=== PATIENT | female | born 1965 | race Caucasian/White ===

== ENCOUNTER 2017-11-20 17:59 | Emergency (ER) ==
[2017-11-20] MEDS ORDERED: ADENOCARD IVP STA (18:05)
[2017-11-20 18:12] VITALS: TEMP 98.1; BMI 23.8
[2017-11-20] MEDS ORDERED: ADENOCARD IVP ONE (18:20)
--- NOTE | 2017-11-20 18:47 | ED.PDOC ---
General ED Provider: Dr. NOEMI LARIOS Chief Complaint: Arrhythmia Stated Complaint: PALIPATION Time Seen by Physician: 18:00 (ARRIVED IN SVT RATE 198 ) Mode of Arrival: Walk-In Information Source: Patient Exam Limitations: No limitations Primary Care Provider: EVELIO VALADEZ Nursing and Triage Documentation Reviewed and Agree: Yes Reviewed sepsis parameters & appropriate labs ordered?: Yes System Inflammatory Response Syndrome: Not Applicable Sepsis Protocol: For patient's 13 years and over: Temp is 96.8 and below OR 101 and greater Pulse >90 BPM Resp >20/minute Acutely Altered Mental Status Are patient's symptoms suggestive of a new infection, such as: -Pneumonia -Skin, Soft Tissue -Endocarditis -UTI -Bone, Joint Infection -Implantable Device -Acute Abdominal Infection -Wound Infection -Meningitis -Blood Stream Catheter Infection -Unknown System Inflammatory Response Syndrome: Not Applicable Cardiovascular Complaint Exam - Palpitations Complaint/Exam Onset/Duration: 1 HR [employer] Symptoms Are: Still present (RESOLVED POST ADENOCAR 6 MG IVP AFTER ARRIVAL) Timing: Intermittent Initial Severity: Severe Current Severity: Severe Character: Reports: Fast, Pounding Aggravating: Reports: None Alleviating: Reports: None Associated Signs and Symptoms: Reports: Lightheadedness. Denies: Dizziness, Syncope, Chest pain, Shortness of breath, Diaphoresis, Nausea, Vomiting Related History: Similar episode Related Surgical History: Reports: None Review of Systems - Review Of Systems Constitutional: Reports: No symptoms Eyes: Reports: No symptoms Ears, Nose, Mouth, Throat: Reports: No symptoms Respiratory: Reports: No symptoms Cardiac: Reports: Palpitations GI: Reports: No symptoms : Reports: No symptoms Musculoskeletal: Reports: No symptoms Skin: Reports: No symptoms Neurological: Reports: No symptoms Endocrine: Reports: No symptoms Hematologic/Lymphatic: Reports: No symptoms All Other Systems: Reviewed and Negative Past Medical History - Past Medical History Previously Healthy: Yes Endocrine: Reports: None Cardiovascular: Reports: None Respiratory: Reports: None Hematological: Reports: None Gastrointestinal: Reports: None Genitourinary: Reports: None Neuro/Psych: Reports: None Musculoskeletal: Reports: None Cancer: Reports: None Last Menstrual Period: hysterectomy - Surgical History General Surgical History: Reports: Hysterectomy - Family History Family History: Reports: None - Social History Smoking Status: Never smoker Hx Substance Use: No Alcohol Screening: None Physical Exam - Physical Exam Appearance: Ill-appearing Ill-appearing: Mild Pain Distress: Mild Eyes: LE, EOMI, Conjunctiva clear ENT: Ears normal, Nose normal, Oropharynx normal Respiratory: Airway patent, Breath sounds clear, Breath sounds equal, Respirations nonlabored Cardiovascular: Tachycardia GI/: Soft, Nontender, No masses, Bowel sounds normal, No Organomegaly Musculoskeletal: Normal strength, ROM intact, No edema, No calf tenderness Skin: Warm, Dry, Normal color Neurological: Sensation intact, Motor intact, Reflexes intact, Cranial nerves intact, Alert, Oriented Psychiatric: Affect appropriate, Mood appropriate Interpretation - EKG Interpretation Rhythm: Other (SVT CONVERTED SINUS TACH) Physician Notification - Case Discussed Physician Notified: Chris MILLAN Time of Notification: 19:33 Critical Care Note - Critical Care Note Total Time (mins): 0 Course - Course Hematology/Chemistry: 11/20/17 18:05 11/20/17 18:05 Orders, Labs, Meds: Lab Review 11/20/17 11/20/17 18:05 18:05 WBC 11.82 H RBC 4.77 Hgb 14.5 Hct 41.8 MCV 87.6 MCH 30.4 MCHC 34.7 RDW Coeff of Emigdio 12.8 Plt Count 354 Immature Gran % (Auto) 0.4 Neut % (Auto) 70.3 Lymph % (Auto) 21.1 Izard % (Auto) 8.0 Eos % (Auto) 0.0 Baso % (Auto) 0.2 Immature Gran # (Auto) 0.1 Neut # 8.3 H Lymph # 2.5 Izard # 0.9 Eos # 0.0 Baso # 0.0 Sodium 145 Potassium 4.3 Chloride 111 H Carbon Dioxide 26 Anion Gap 12.3 BUN 9 Creatinine 0.79 Estimated GFR (MDRD) 77.00 BUN/Creatinine Ratio 11.39 Glucose 106 Calcium 9.5 Total Bilirubin 0.6 AST 18 ALT 26 Alkaline Phosphatase 73 Total Creatine Kinase 100 Troponin I 0.0150 Total Protein 7.7 Albumin 3.8 Globulin 3.9 Albumin/Globulin Ratio 0.97 TSH 0.733 Free T4 1.01 Orders Category Date Time Status EKG-(ED ONLY) Stat CARDIO 11/20/17 18:04 Completed EKG-(ED ONLY) Stat CARDIO 11/20/17 18:11 Completed ED IV/MEDIPORT/POWERPORT .ONCE EMERGENCY 11/20/17 18:04 Active CBC W/ AUTO DIFF Stat LAB 11/20/17 18:05 Completed COMPREHENSIVE METABOLIC PANEL Stat LAB 11/20/17 18:05 Completed CREATINE KINASE Stat LAB 11/20/17 18:05 Completed FREE T4 (FREE THYROXINE) Stat LAB 11/20/17 18:05 Completed THYROID STIMULATING HORMONE Stat LAB 11/20/17 18:05 Completed TROPONIN I Stat LAB 11/20/17 18:05 Completed 0.9 % Sodium Chloride [Saline Flush] MEDS 11/20/17 18:03 Ordered 1 syr IVF PRN PRN Adenosine [Adenocard] MEDS 11/20/17 18:20 Discontinued 24 mg IVP .STK-MED ONE Adenosine [Adenocard] MEDS 11/20/17 18:05 Discontinued 6 mg IVP ONCE STA CHEST, 1V AP ONLY Stat RADS 11/20/17 18:04 Taken Medications Generic Name Dose Route Start Last Admin Trade Name Freq PRN Reason Stop Dose Admin Sodium Chloride 1 syr 11/20/17 18:03 11/20/17 18:16 Saline Flush IVF 1 syr PRN PRN Administration To flush IV Discontinued Medications Generic Name Dose Route Start Last Admin Trade Name Freq PRN Reason Stop Dose Admin Adenosine 6 mg 11/20/17 18:05 11/20/17 18:10 Adenocard IVP 11/20/17 18:06 6 mg ONCE STA Administration Vital Signs: Temp Pulse Resp BP Pulse Ox 11/20/17 18:56 107 H 163/105 H 100 11/20/17 18:18 112 H 160/113 H 100 11/20/17 18:01 98.1 F 190 H 20 112/99 H 100 GABBY Risk Score GABBY Risk Score: Risk Score Odds of by 30D 0 0.1 (0.1-0.2) 1 0.3 (0.2-0.3) 2 0.4 (0.3-0.5) 3 0.7 (0.6-0.9) 4 1.2 (1.0-1.5) 5 2.2 (1.9-2.6) 6 3.0 (2.5-3.6) 7 4.8 (3.8-6.1) Departure - Departure Time of Disposition: 19:00 Disposition: TSF SHORT-TRM HOSP Discharge Problem: Dysthymia Instructions: Supraventricular Tachycardia (ED) Condition: Good Pt referred to PMD for follow-up: Yes IPMP verified?: No Additional Instructions: Please call your Family Physician as soon as possible to schedule a follow-up appointment. Allergies/Adverse Reactions: Allergies iv contrast dye Adverse Reaction (Uncoded 11/20/17 18:21) Transfer Form Completed: Yes Disposition Discussed With: Patient, Family
[2017-11-20 18:57] VITALS: BP 163/105
--- NOTE | 2017-11-21 07:39 | DI ---
EXAM: Chest one view, frontal view only. HISTORY: Chest pain. COMPARISON: 09/18/2016. FINDINGS: The heart size is normal. There is no pulmonary vascular congestion. The lungs are clear . No pleural effusion or pneumothorax is seen. No acute osseous abnormality is identified. Since t he prior study, there has been no significant interval change. IMPRESSION: No acute cardiopulmonary process.
== END 2017-11-20 20:40 | disposition short-term general hospital (02) ==
LOC: ED 17:59
DX: I47.1 Supraventricular tachycardia (principal)
CPT/HCPCS: 36415; 80053; 82550; 84439; 84443; 84484; 85025; 93005; 93010; 96361; 96374; 99285

== ENCOUNTER 2017-12-30 18:50 | Emergency (ER) ==
[2017-12-30 18:54] VITALS: BMI 24.5
[2017-12-30] MEDS ORDERED: ASPIRIN CHEWABLE PO STA (19:19)
[2017-12-30] MEDS ORDERED: NITROSTAT SL STA (19:20)
[2017-12-30] MEDS ORDERED: SODIUM CHLORIDE 1,000 ML IV STA (19:21)
[2017-12-30] MEDS ORDERED: ZOFRAN 4 MG/2 ML IVP STA (19:21)
[2017-12-30] MEDS ORDERED: TORADOL IVP STA (20:00)
--- NOTE | 2017-12-30 20:04 | ED.PDOC ---
General ED Provider: Dr. DOMINICK SANTACRUZ Chief Complaint: Chest Pain Stated Complaint: Patient is a 52 year old female who states she had SVT ablation at [facility] in [place]. Has been having chest pain off and on worse [facility] Describes the pain as pressure located on the left. Time Seen by Physician: 19:05 Mode of Arrival: Walk-In Information Source: Patient, EMT Primary Care Provider: EVELIO VALADEZ Nursing and Triage Documentation Reviewed and Agree: Yes Reviewed sepsis parameters & appropriate labs ordered?: No System Inflammatory Response Syndrome: Not Applicable Sepsis Protocol: For patient's 13 years and over: Temp is 96.8 and below OR 101 and greater Pulse >90 BPM Resp >20/minute Acutely Altered Mental Status Are patient's symptoms suggestive of a new infection, such as: -Pneumonia -Skin, Soft Tissue -Endocarditis -UTI -Bone, Joint Infection -Implantable Device -Acute Abdominal Infection -Wound Infection -Meningitis -Blood Stream Catheter Infection -Unknown System Inflammatory Response Syndrome: Not Applicable Review of Systems - Review Of Systems Constitutional: Reports: Diaphoresis Eyes: Reports: No symptoms Ears, Nose, Mouth, Throat: Reports: No symptoms Respiratory: Reports: No symptoms Cardiac: Reports: Chest pain GI: Reports: Nausea : Reports: No symptoms Musculoskeletal: Reports: No symptoms Skin: Reports: No symptoms Neurological: Reports: Anxiety Endocrine: Reports: No symptoms Hematologic/Lymphatic: Reports: No symptoms All Other Systems: Reviewed and Negative Past Medical History - Past Medical History Previously Healthy: Yes Endocrine: Reports: None Cardiovascular: Reports: Hypertension, Other (SVT ) Respiratory: Reports: Asthma Hematological: Reports: None Gastrointestinal: Reports: Pancreatitis Genitourinary: Reports: None Neuro/Psych: Reports: None Musculoskeletal: Reports: None Cancer: Reports: None Last Menstrual Period: HYSTERECTOMY - Surgical History General Surgical History: Reports: Hysterectomy, Other (Cardiac Ablation. ) - Family History Family History: Reports: None - Social History Smoking Status: Never smoker Hx Substance Use: No Alcohol Screening: None - Immunizations Tetanus Shot up to Date: Yes Physical Exam - Physical Exam Appearance: Ill-appearing Ill-appearing: Moderate Pain Distress: Severe Eyes: LE, EOMI, Conjunctiva clear ENT: Ears normal, Nose normal, Oropharynx normal Neck: Supple Respiratory: Airway patent, Breath sounds clear, Breath sounds equal, Respirations nonlabored Cardiovascular: Pulses normal, No rub, No murmur, Tachycardia GI/: Soft, Nontender, No masses, Bowel sounds normal, No Organomegaly Musculoskeletal: Normal strength, ROM intact, No edema, No calf tenderness Skin: Warm, Dry, Normal color Neurological: Sensation intact, Motor intact, Reflexes intact, Cranial nerves intact, Alert, Oriented Psychiatric: Anxious Interpretation - Radiology Interpretation Radiology Interpretation By: ED Physician Radiology Results: Negative Exam Interpreted: Portable CXR - EKG Interpretation Time of EKG #1: 19:02 Rate: Tachy Rhythm: Sinus Ectopy: None [place]: NL ST Segment: Normal Interpretation: Sinus Tachycardia. Re-Evaluation - Re-Evaluation Time of Re-Evaluation: 20:05 Status: Unchanged Vital Signs Stable: Yes (155/90, p 98) Pain Level: unchanged Physician Notification - Case Discussed Physician Notified: Dr Castillo Time of Notification: 22:22 (Acepted to Marci. ) Critical Care Note - Critical Care Note Total Time (mins): 30 Course - Course Hematology/Chemistry: 12/30/17 19:35 12/30/17 19:35 Orders, Labs, Meds: Lab Review 12/30/17 12/30/17 12/30/17 19:33 19:35 19:35 WBC 11.28 H RBC 4.20 Hgb 12.8 Hct 36.6 L MCV 87.1 MCH 30.5 MCHC 35.0 RDW Coeff of Emigdio 12.2 Plt Count 291 Immature Gran % (Auto) 0.3 Neut % (Auto) 72.7 Lymph % (Auto) 16.6 Graham % (Auto) 9.6 Eos % (Auto) 0.4 Baso % (Auto) 0.4 Immature Gran # (Auto) 0.0 Neut # (Auto) 8.2 H Lymph # (Auto) 1.9 Graham # (Auto) 1.1 Eos # (Auto) 0.0 Baso # (Auto) 0.0 D-Dimer (Manual) 409.32 Sodium 140 Potassium 3.7 Chloride 107 Carbon Dioxide 25 Anion Gap 11.7 BUN 10 Creatinine 0.87 Estimated GFR (MDRD) 69.00 BUN/Creatinine Ratio 11.49 Glucose 103 Calcium 9.7 Total Bilirubin 1.2 AST 19 ALT 25 Alkaline Phosphatase 74 Total Creatine Kinase 138 CK-MB (CK-2) 1.1 CK-MB (CK-2) % 0.19560 Troponin I < 0.0100 B-Natriuretic Peptide Total Protein 7.3 Albumin 3.6 Globulin 3.7 Albumin/Globulin Ratio 0.97 12/30/17 19:35 WBC RBC Hgb Hct MCV MCH MCHC RDW Coeff of Emigdio Plt Count Immature Gran % (Auto) Neut % (Auto) Lymph % (Auto) Graham % (Auto) Eos % (Auto) Baso % (Auto) Immature Gran # (Auto) Neut # (Auto) Lymph # (Auto) Graham # (Auto) Eos # (Auto) Baso # (Auto) D-Dimer (Manual) Sodium Potassium Chloride Carbon Dioxide Anion Gap BUN Creatinine Estimated GFR (MDRD) BUN/Creatinine Ratio Glucose Calcium Total Bilirubin AST ALT Alkaline Phosphatase Total Creatine Kinase CK-MB (CK-2) CK-MB (CK-2) % Troponin I B-Natriuretic Peptide 25 Total Protein Albumin Globulin Albumin/Globulin Ratio Orders Category Date Time Status EKG-(ED ONLY) Stat CARDIO 12/30/17 19:18 Completed ED IV/MEDIPORT/POWERPORT .ONCE EMERGENCY 12/30/17 19:18 Active ED IV/MEDIPORT/POWERPORT .ONCE EMERGENCY 12/30/17 19:20 Active B-TYPE NATRIURETIC PEPTIDE Stat LAB 12/30/17 19:35 Completed CBC W/ AUTO DIFF Stat LAB 12/30/17 19:35 Completed COMPREHENSIVE METABOLIC PANEL Stat LAB 12/30/17 19:35 Completed CREATINE KINASE Stat LAB 12/30/17 19:35 Completed D-DIMER Stat LAB 12/30/17 19:33 Completed TROPONIN I Stat LAB 12/30/17 19:35 Completed 0.9 % Sodium Chloride [Saline Flush] MEDS 12/30/17 19:18 Discontinued 1 syr IVF PRN PRN 0.9 % Sodium Chloride [Saline Flush] MEDS 12/30/17 19:21 Discontinued 1 syr IVF PRN PRN Aspirin [Aspirin Chewable] MEDS 12/30/17 19:19 Discontinued 324 mg PO ONCE STA Hydromorphone HCl [Dilaudid 1 mg/ml Syringe] MEDS 12/30/17 20:46 Discontinued 0.5 mg IVP ONCE STA Hydromorphone HCl [Dilaudid 1 mg/ml Syringe] MEDS 12/30/17 23:28 Discontinued 0.5 mg IVP ONCE STA Hydromorphone HCl [Dilaudid 1 mg/ml Syringe] MEDS 12/30/17 20:45 Discontinued 1 mg .ROUTE .STK-MED ONE Ketorolac Tromethamine [Toradol] MEDS 12/30/17 20:00 Discontinued 30 mg IVP ONCE STA Morphine Sulfate [Morphine 4 mg/ml Vial] MEDS 12/30/17 20:37 Discontinued 4 mg IVP ONCE STA Nitroglycerin [Nitrostat] MEDS 12/30/17 19:20 Discontinued 0.4 mg SL ONCE STA Ondansetron HCl/Pf [Zofran 4 mg/2 ml] MEDS 12/30/17 19:21 Discontinued 4 mg IVP ONCE STA Sodium Chloride 0.9% [Sodium Chloride] 1,000 ml MEDS 12/30/17 19:21 Discontinued IV 125 mls/hr CHEST, 1V AP ONLY Stat RADS 12/30/17 19:18 Taken Medications Discontinued Medications Generic Name Dose Route Start Last Admin Trade Name Freq PRN Reason Stop Dose Admin Aspirin 324 mg 12/30/17 19:19 12/30/17 19:33 Aspirin Chewable PO 12/30/17 19:20 324 mg ONCE STA Administration Hydromorphone HCl 0.5 mg 12/30/17 20:46 12/30/17 20:49 Dilaudid 1 Mg/Ml Syringe IVP 12/30/17 20:47 0.5 mg ONCE STA Administration Hydromorphone HCl 0.5 mg 12/30/17 23:28 12/30/17 23:10 Dilaudid 1 Mg/Ml Syringe IVP 12/30/17 23:29 0.5 mg ONCE STA Administration Sodium Chloride 1,000 mls @ 125 mls/hr 12/30/17 19:21 12/30/17 19:35 Sodium Chloride IV 12/31/17 03:20 125 mls/hr .Q8H STA Administration Ketorolac Tromethamine 30 mg 12/30/17 20:00 12/30/17 20:00 Toradol IVP 12/30/17 20:01 30 mg ONCE STA Administration Morphine Sulfate 4 mg 12/30/17 20:37 12/30/17 20:53 Morphine 4 Mg/Ml Vial IVP 12/30/17 20:38 Not Given ONCE STA Nitroglycerin 0.4 mg 12/30/17 19:20 12/30/17 19:33 Nitrostat SL 12/30/17 19:21 0.4 mg ONCE STA Administration Ondansetron HCl 4 mg 12/30/17 19:21 12/30/17 19:33 Zofran 4 Mg/2 Ml IVP 12/30/17 19:22 4 mg ONCE STA Administration Sodium Chloride 1 syr 12/30/17 19:18 Saline Flush IVF PRN PRN To flush IV Sodium Chloride 1 syr 12/30/17 19:21 Saline Flush IVF PRN PRN To flush IV Vital Signs: Temp Pulse Resp BP Pulse Ox 12/30/17 20:23 99 F 97 H 15 137/90 96 12/30/17 18:51 99.1 F 137 H 22 143/100 H 98 GABBY Risk Score >/= 3 CAD Risk Factors: Yes Known CAD (Stenosis >/= 50%): No ASA Use in Past 7 Days: No Severe Angina (>/= 2 episodes in 24 hours): Yes EKG ST Changes >/= 0.5mm: No Postive Cardiac Marker: No GABBY Total Score: 2 GABBY Risk Score: Risk Score Odds of by 30D 0 0.1 (0.1-0.2) 1 0.3 (0.2-0.3) 2 0.4 (0.3-0.5) 3 0.7 (0.6-0.9) 4 1.2 (1.0-1.5) 5 2.2 (1.9-2.6) 6 3.0 (2.5-3.6) 7 4.8 (3.8-6.1) Departure - Departure Time of Disposition: 22:22 Disposition: HOME SELF-CARE Discharge Problem: Chest pain Condition: Stable Pt referred to PMD for follow-up: Yes IPMP verified?: No Allergies/Adverse Reactions: Allergies iv contrast dye Adverse Reaction (Uncoded 12/30/17 18:55) Home Medications: Ambulatory Orders Diltiazem HCl [Cartia Xt] 240 mg PO DAILY 12/30/17 Pt. Stabilized Within Hospital's Capabilities/Transferred To: [facility] Disposition Discussed With: Patient
[2017-12-30 20:23] VITALS: TEMP 99
[2017-12-30] MEDS ORDERED: MORPHINE 4 MG/ML VIAL IVP STA (20:37)
[2017-12-30] MEDS ORDERED: DILAUDID 1 MG/ML SYRINGE IVP STA ×2 (20:46→23:28)
[2017-12-30] MEDS: DILAUDID 1 MG/ML SYRINGE ONE ×2 (20:48→20:50)
[2017-12-30 23:38] VITALS: BP 143/103
--- NOTE | 2017-12-31 07:40 | DI ---
EXAM: Chest one view HISTORY: Chest pain COMPARISON: 11/20/2017 TECHNIQUE: Single view of the chest was performed FINDINGS: The lungs are clear. There is no pleural effusion or pneumothorax. The heart is normal i n size. The mediastinal contour is normal. There are no acute abnormalities of the bones. IMPRESSION: No acute cardiopulmonary process.
== END 2017-12-30 23:25 | disposition short-term general hospital (02) ==
LOC: ED 18:50
DX: R07.9 Chest pain, unspecified (principal); Z98.890 Other specified postprocedural states; I10 Essential (primary) hypertension; R05 Cough; R00.0 Tachycardia, unspecified; Z79.899 Other long term (current) drug therapy
CPT/HCPCS: 36415; 80053; 82550; 82553; 83880; 84484; 85025; 85379; 93005; 93010; 96361; 96374; 96375; 96376; 99285